=== PATIENT | female | born 1995 | race Caucasian/White ===

== ENCOUNTER 2016-09-01 12:41 | Emergency (ER) | payer SELFPAY ==
[~2016-09-01] VITALS: Ht 160 cm; Wt 70.0 kg
[~2016-09-01 12:41] MED LIST: CEFU1TAB43 PO; TRAM50TA PO
[2016-09-01 12:42] VITALS: BP 135/88; PULSE 84; RESP 18; TEMP 98.2; O2SAT 98
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
== END 2016-09-01 15:55 | disposition home or self-care (01) ==
LOC: NEPD 12:41 → NEPF 15:55
DX: T76.21XA Adult sexual abuse, suspected, initial encounter (principal); S70.12XA Contusion of left thigh, initial encounter; M54.2 Cervicalgia
CPT/HCPCS: 99281